=== PATIENT | female | born 1950 | race Caucasian/White ===

== ENCOUNTER 2020-01-16 09:47 | Outpatient (CLI) | payer OTHER ==
[2020-01-16 10:19] LABS: Basophils # (Auto) 0.1 K/mm3 (0.0-0.1); Basophils % (Auto) 0.9 % (0.0-1.8); Eosinophils # (Auto) 0.2 K/mm3 (0.0-0.4); Eosinophils % (Auto) 2.9 % (0.0-4.3); Hematocrit 46.1 % (30.3-42.9); Hemoglobin 15.5 gm/dl (10.1-14.3); Lymphocytes # (Auto) 1.5 K/mm3 (1.2-5.4); Lymphocytes % (Auto) 27.2 % (13.4-35.0); Mean Corpuscular HGB Conc 34 % (30-34); Mean Corpuscular Volume 92 fl (79-97); Monocytes # (Auto) 0.4 K/mm3 (0.0-0.8); Monocytes % (Auto) 8.1 % (0.0-7.3); Platelet Count 225 K/mm3 (140-440); Red Blood Count 5.02 M/mm3 (3.65-5.03); Red Cell Distribution Width 12.8 % (13.2-15.2)
[2020-01-16 10:27] LABS: Bilirubin,Urine NEG (Negative); Blood,Urine NEG (Negative); Color,Urine Yellow (Yellow); Mucus,Urine FEW /HPF; Protein,Urine <15 mg/dL mg/dL (Negative); Urobilinogen,Urine < 2.0 mg/dL (<2.0)
[2020-01-16 10:48] LABS: Alanine Aminotransferase 22 units/L (7-56); Albumin 4.2 g/dL (3.9-5); BUN/Creatinine Ratio 15; Blood Urea Nitrogen 12 mg/dL (7-17); Calcium 9.5 mg/dL (8.4-10.2); Chol/HDL Ratio 7.26 %; HDL Cholesterol 45 mg/dL (40-59); Hemolysis Index 14; LDL Cholesterol,Direct 260 mg/dL (50-130)
[2020-01-18 07:27] LABS: Vitamin D, 25-OH, D2 <4 ng/mL
== END 2020-01-16 09:48 | disposition home or self-care (01) ==
LOC: LAB 09:47
PROVIDERS: ATTEND Internal Medicine
DX: Z00.00 Encounter for general adult medical examination without abnormal findings (principal); Z13.29 Encounter for screening for other suspected endocrine disorder; Z13.21 Encounter for screening for nutritional disorder; Z13.220 Encounter for screening for lipoid disorders; N39.0 Urinary tract infection, site not specified
CPT/HCPCS: 36415; 80053; 80061; 81001; 82306; 82607; 83036; 84443; 85025

== ENCOUNTER 2020-03-26 07:00 | Day surgery (SDC) | payer OTHER ==
[2020-03-26 11:16] VITALS: BP 125/67
== END 2020-03-26 07:01 | disposition home or self-care (01) ==
LOC: GIO 07:00
DX: Z12.11 Encounter for screening for malignant neoplasm of colon (principal); K21.0 Gastro-esophageal reflux disease with esophagitis; K29.50 Unspecified chronic gastritis without bleeding; D12.3 Benign neoplasm of transverse colon; K57.30 Diverticulosis of large intestine without perforation or abscess without bleeding; K64.8 Other hemorrhoids; B96.81 Helicobacter pylori [H. pylori] as the cause of diseases classified elsewhere; E78.00 Pure hypercholesterolemia, unspecified; I10 Essential (primary) hypertension; G47.30 Sleep apnea, unspecified; Z80.3 Family history of malignant neoplasm of breast; Z80.0 Family history of malignant neoplasm of digestive organs; Z79.899 Other long term (current) drug therapy
CPT/HCPCS: 43239; 45385; 88305; 88342; J2704; J7030

== ENCOUNTER 2020-08-23 12:02 | Emergency (ER) | payer OTHER ==
[2020-08-23 12:15] VITALS: BP 128/88
--- NOTE | 2020-08-23 13:19 | Emergency Department Report ---
- General Chief complaint: Skin Rash Stated complaint: BREAST PAIN Time Seen by Provider: 08/23/20 13:14 Source: patient Mode of arrival: Ambulatory Limitations: No Limitations - History of Present Illness Initial comments: The patient was evaluated in the emergency department for symptoms described in the history of present illness. He/she was evaluated in the context of the [facility] COVID-19 pandemic, which necessitated consideration that the patient might be at risk for infection with the virus that causes COVID-19. Institutional protocols and algorithms that pertain to the evaluation of patients at risk for COVID-19 are in a state of rapid change based on information released by regulatory bodies including the CDC and federal and state organizations. These policies and algorithms were followed during the patient's care in the emergency department. Please note that these policies, procedures and recommendations changed on a rapid basis. 69-year-old female presents to the emergency room complaining of a rash under her left breast that is painful. Patient states is been there about 4 days. Patient does admit that she has a history of shingles 13 years ago. Patient denies any fever chills no nausea no vomiting no chest pain or shortness of breath. MD complaint: rash - Related Data Home Medications Medication Instructions Recorded Confirmed Last Taken Colace CAP 03/26/20 03/23/20 Rosuvastatin (Nf) [Crestor] 03/26/20 03/26/20 lisinopriL [Zestril TAB] 03/26/20 03/26/20 06:00 Previous Rx's Medication Instructions Recorded Last Taken Type Baclofen 5 mg PO QHS #60 tablet 03/26/20 Unknown Rx Omeprazole/Sodium Bicarbonate 1 each PO DAILY 30 Days #30 capsule 03/26/20 Unknown Rx [Omeprazole-Bicarb 20-1,100 Cap] Acyclovir [Zovirax Tab] 800 mg PO 5XD 10 Days #50 tablet 08/23/20 Unknown Rx Ibuprofen [Motrin 600 MG tab] 600 mg PO Q8H PRN #30 tablet 08/23/20 Unknown Rx traMADoL [Ultram 50 MG tab] 50 mg PO Q6HR PRN #12 tablet 08/23/20 Unknown Rx Allergies Allergy/AdvReac Type Severity Reaction Status Date / Time No Known Allergies Allergy Unverified 01/16/20 10:01 Abscess Boil HPI - HPI Chief Complaint: Skin Rash Stated Complaint: BREAST PAIN Time Seen by Provider: 08/23/20 13:14 Home Medications: Home Medications Medication Instructions Recorded Confirmed Last Taken Colace CAP 03/26/20 03/23/20 Rosuvastatin (Nf) [Crestor] 03/26/20 03/26/20 lisinopriL [Zestril TAB] 03/26/20 03/26/20 06:00 Previous Rx's Medication Instructions Recorded Last Taken Type Baclofen 5 mg PO QHS #60 tablet 03/26/20 Unknown Rx Omeprazole/Sodium Bicarbonate 1 each PO DAILY 30 Days #30 capsule 03/26/20 Unknown Rx [Omeprazole-Bicarb 20-1,100 Cap] Acyclovir [Zovirax Tab] 800 mg PO 5XD 10 Days #50 tablet 08/23/20 Unknown Rx Ibuprofen [Motrin 600 MG tab] 600 mg PO Q8H PRN #30 tablet 08/23/20 Unknown Rx traMADoL [Ultram 50 MG tab] 50 mg PO Q6HR PRN #12 tablet 08/23/20 Unknown Rx Allergies/Adverse Reactions: Allergies Allergy/AdvReac Type Severity Reaction Status Date / Time No Known Allergies Allergy Unverified 01/16/20 10:01 ED Review of Systems ROS: Stated complaint: BREAST PAIN Other details as noted in HPI Comment: All other systems reviewed and negative ED Past Medical Hx - Past Medical History Previous Medical History?: Yes Hx Hypertension: Yes Hx Heart Attack/AMI: No Hx GERD: Yes (GERD) Hx Liver Disease: No Hx Renal Disease: No Hx Seizures: No Hx Asthma: No Hx COPD: No - Surgical History Hx Pacemaker: No Hx Internal Defibrillator: No - Social History Smoking Status: Never Smoker Substance Use Type: None - Medications Home Medications: Home Medications Medication Instructions Recorded Confirmed Last Taken Type Baclofen 5 mg PO QHS #60 tablet 03/26/20 Unknown Rx Colace CAP 03/26/20 03/23/20 History Omeprazole/Sodium Bicarbonate 1 each PO DAILY 30 Days #30 capsule 03/26/20 Unknown Rx [Omeprazole-Bicarb 20-1,100 Cap] Rosuvastatin (Nf) [Crestor] 03/26/20 03/26/20 History lisinopriL [Zestril TAB] 03/26/20 03/26/20 06:00 History Acyclovir [Zovirax Tab] 800 mg PO 5XD 10 Days #50 tablet 08/23/20 Unknown Rx Ibuprofen [Motrin 600 MG tab] 600 mg PO Q8H PRN #30 tablet 08/23/20 Unknown Rx traMADoL [Ultram 50 MG tab] 50 mg PO Q6HR PRN #12 tablet 08/23/20 Unknown Rx ED Physical Exam - General Limitations: No Limitations General appearance: alert, in no apparent distress - Head Head exam: Present: atraumatic, normocephalic - Eye Eye exam: Present: normal appearance - ENT ENT exam: Present: mucous membranes moist - Neck Neck exam: Present: normal inspection, full ROM - Respiratory Respiratory exam: Absent: accessory muscle use - Back Exam Back exam: Present: normal inspection, full ROM - Neurological Exam Neurological exam: Present: alert, oriented X3, normal gait - Expanded Skin Exam Expanded Distribution of rash: chest (Chest left side under breasts) Description of rash: Present: tenderness, erythematous, vesicular ED Course Vital Signs 08/23/20 12:14 Temperature 99.1 F Pulse Rate 92 H Respiratory 16 Rate Blood Pressure 128/88 [Right] O2 Sat by Pulse 96 Oximetry ED Medical Decision Making - Medical Decision Making 69-year-old female presents to the emergency room complaining of a rash under her left breast that is painful. Patient states is been there about 4 days. Patient does admit that she has a history of shingles 13 years ago. Patient denies any fever chills no nausea no vomiting no chest pain or shortness of breath. Patient appears to have a shingles outbreak. Will place her on acyclovir 800 mg p.o. 5 times a day for the next 10 days. Patient be prescribed tramadol and ibuprofen for pain management. I discussed with patient she needs to follow-up with her primary care provider. Please avoid contact with immune compromise people. Critical care attestation.: If time is entered above; I have spent that time in minutes in the direct care of this critically ill patient, excluding procedure time. ED Disposition Clinical Impression: Shingles rash Disposition: DC- TO HOME OR SELFCARE Is pt being admited?: No Does the pt Need Aspirin: No Condition: Stable Instructions: Shingles, [id number], Neuropathic Pain Additional Instructions: Please take antiviral medications as prescribed. Pain medication as needed. Follow-up with your primary care provider. And I recommend for you to get the shingles vaccination. You can go to any pharmacist and they are able to administer the shingles vaccine. Prescriptions: Ibuprofen [Motrin 600 MG tab] 600 mg PO Q8H PRN #30 tablet PRN Reason: Pain traMADoL [Ultram 50 MG tab] 50 mg PO Q6HR PRN #12 tablet PRN Reason: Pain Acyclovir [Zovirax Tab] 800 mg PO 5XD 10 Days #50 tablet Referrals: JO TERRAZAS MD [Staff Physician] - 3-5 Days
== END 2020-08-23 13:57 | disposition home or self-care (01) ==
LOC: ED 12:02
DX: B02.9 Zoster without complications (principal); I10 Essential (primary) hypertension; K21.9 Gastro-esophageal reflux disease without esophagitis; Z79.1 Long term (current) use of non-steroidal anti-inflammatories (NSAID); Z79.899 Other long term (current) drug therapy
CPT/HCPCS: 99281